=== PATIENT | male | born 1985 | race Two or more races ===

== ENCOUNTER 2018-01-26 10:45 | Outpatient (CLI) | payer OTHER ==
[2018-01-26 11:26] LABS: ANION GAP 12.4 (8-16); CARBON DIOXIDE 29.4 mmol/L (21-32); POTASSIUM 3.8 mmol/L (3.5-5.1)
[2018-01-26 11:31] LABS: CHOL/HDL RATIO 2.8 (1-4.5)
== END 2018-01-26 21:23 | disposition home or self-care (01) ==
LOC: MLB 10:45 → EEVIPCON 10:45 → MLB 21:23
PROVIDERS: ATTEND Student in an Organized Health Care Education/Training Program
DX: E78.5 Hyperlipidemia, unspecified (principal); R53.83 Other fatigue; Z86.39 Personal history of other endocrine, nutritional and metabolic disease
CPT/HCPCS: 36415; 80048; 82306